=== PATIENT | male | born 1950 | race African-American/Black ===

== ENCOUNTER 2021-06-11 08:55 | Emergency (ER) | payer OTHER ==
[~2021-06-11] VITALS: Ht 182.9 cm; Wt 74.8 kg
[~2021-06-11 08:55] MED LIST: CARB200T4 PO; DIVA500T1 PO; FOLI1TAB19 PO; LISI-487 PO; ONDA4TAB PO; PRAZ2CAP PO; PROP10TA28 PO; RANI-287 PO; RISP2TAB PO; SIMV40TA1 PO; THIA100T34 PO
--- NOTE | 2021-06-11 08:55 | NUR ---
PT BROUGHT TO BED 8 VIA [facility]
[2021-06-11 08:59] VITALS: BP 142/93
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
--- NOTE | 2021-06-11 09:06 | NUR ---
MD Akhtar evaluating pt at bedside
[2021-06-11] MEDS ORDERED: KETOROLAC 30 MG/ML VIAL IM ONE (09:15)
[2021-06-11] MEDS ORDERED: LORazepam 1 MG TAB PO ONE (09:15)
--- NOTE | 2021-06-11 09:20 | NUR ---
X-ray at bedside
--- NOTE | 2021-06-11 09:28 | NUR ---
Pt to CT via [facility]
--- NOTE | 2021-06-11 09:41 | NUR ---
Pt returned from CT
[2021-06-11] MEDS ORDERED: ACET-10509 PO (10:38)
[2021-06-11 11:02] VITALS: BP 132/88
--- NOTE | 2021-06-11 11:07 | NUR ---
Patient discharged with v/s stable. Written and verbal after care instructions given and explained.Patient alert, oriented and verbalized understanding of instructions. Ambulatory with steady gait. All questions addressed prior to discharge. ID band removed. Patient advised to follow up with PMD. Rx of Tylenol was given. Patient educated on indication of medication including possible reaction and side effects. Opportunity to ask questions provided and answered.
== END 2021-06-11 11:07 | disposition home or self-care (01) ==
LOC: MED 08:55
DX: S16.1XXA Strain of muscle, fascia and tendon at neck level, initial encounter (principal); R07.89 Other chest pain; I10 Essential (primary) hypertension; F41.9 Anxiety disorder, unspecified; F32.9 Major depressive disorder, single episode, unspecified; Z79.899 Other long term (current) drug therapy; V98.8XXA Other specified transport accidents, initial encounter; Y93.89 Activity, other specified; Y92.89 Other specified places as the place of occurrence of the external cause; Y99.8 Other external cause status
CPT/HCPCS: 71045; 72125; 96372; 99284; J1885